=== PATIENT | female | born 1975 | race Caucasian/White ===

== ENCOUNTER 2018-01-14 17:26 | Emergency (ER) | payer MEDICAID ==
[2018-01-14 20:55] LABS: INR 1.03 (0.85-1.17); PROTIME 13.1 SECONDS (11.6-15.0)
[2018-01-14 20:56] LABS: D-DIMER-QUANTITATIVE 0.56 ug/mLFEU (0.20-0.54)
[2018-01-14 21:00] LABS: ALBUMIN 3.1 g/dL (3.4-5.0); ANION GAP 12.5 mmol/L (8-16); BILIRUBIN - TOTAL 0.2 mg/dL (0.2-1.3); CALCIUM 8.6 mg/dL (8.5-10.1); CARBON DIOXIDE 27.3 mmol/L (21.0-32.0); CREATININE - SERUM 0.9 mg/dL (0.6-1.3); POTASSIUM - SERUM 3.8 mmol/L (3.5-5.1)
[2018-01-14 21:27] LABS: PLATELET ESTIMATE DECREASED
[2018-01-14 21:30] LABS: BASOPHILS 0.5 % (0-2); EOSINOPHILS 6.1 % (0-7); HEMATOCRIT 43.6 % (36.0-48.0); HEMOGLOBIN 14.8 g/dL (12-16); IMMATURE GRANULOCYTES 0.3 % (0-5); LYMPHOCYTES 35.4 % (15-50); MCH 30.3 pg (26.0-34.0); MCHC 33.9 g/dL (31.0-37.0); MCV 89.3 fL (80.0-100.0); MEAN PLATELET VOLUME 10.1 fL (7.4-10.4); MONOCYTES 11.1 % (2-11); PLATELET COUNT 83 10x3/uL (130-400); RBC 4.88 10x6/uL (4.00-5.40); RDW 13.7 % (11.5-14.5); WBC 3.8 10x3/uL (4.8-10.8)
== END 2018-01-14 21:56 | disposition home or self-care (01) ==
LOC: D.ER 17:26
PROVIDERS: Physician Assistant Medical
DX: L03.115 Cellulitis of right lower limb (principal); F17.200 Nicotine dependence, unspecified, uncomplicated